=== PATIENT | male | born 1970 | race Caucasian/White ===

== ENCOUNTER 2017-08-02 12:47 | Emergency (ER) | payer BC ==
[~2017-08-02 12:47] MED LIST: ATROPINE SULFATE 0.1 MG/ML 10ML SYRINGE ONE; EPINEPHrine 10 ML SYRINGE (0.1 MG/ML) ONE; NALOXONE 0.4 MG/ML 1 ML VIAL ONE; NALOXONE 1 MG/ML 2 ML SYRINGE ONE; SODIUM BICARB 8.4% 50 ML SYR (1 MEQ/ML) ONE
[2017-08-02 13:14] LABS: Glucose,Whole Blood 130 mg/dL (75-99)
--- NOTE | 2017-08-02 13:33 | ED ---
CPR HPI - General Chief Complaint: Cardiac Arrest/CPR Stated Complaint: UNresponsive Time Seen by Provider: 08/02/17 12:47 Source: family, EMS, RN notes reviewed, old records reviewed Mode of arrival: EMS - History of Present Illness Initial Comments: This is a 46-year-old male with a history of GERD any history of DVT in the right leg in 2006 who apparently is been having intermittent episodes of dyspnea over the past month or so. Today he was found lying on the floor at his home in the bathroom and 3 taken a shower by his . She states he had fallen on his face. He was laying on the floor and asked to be taken to the hospital. He was short of breath. Upon arrival paramedics assessed the patient found to be dyspneic and very anxious. He ate. As if he was hyperventilating. He was brought here for evaluation. In route he went to her respiratory and apparent PEA arrest. ACLS protocol was started. Upon arrival the patient was unresponsive. CPR was in progress with [id number] used for respiratory support. - Related Data Home Medications Medication Instructions Recorded Confirmed Ranitidine HCl [Zantac] 150 mg PO BID 05/29/16 06/03/16 Allergies Allergy/AdvReac Type Severity Reaction Status Date / Time No Known Allergies Allergy Verified 05/29/16 15:50 Review of Systems ROS Statement: Those systems with pertinent positive or pertinent negative responses have been documented in the HPI. ROS Other: All systems not noted in ROS Statement are negative. Limitations: ROS unobtainable due to patients medical condition Past Medical History Past Medical History: Deep Vein Thrombosis (DVT), GERD/Reflux History of Any Multi-Drug Resistant Organisms: None Reported Past Surgical History: No Surgical Hx Reported Past Anesthesia/Blood Transfusion Reactions: No Reported Reaction Additional Past Anesthesia/Blood Transfusion Reaction / Comment(s): has never had anesthesia Smoking Status: Never smoker Past Alcohol Use History: Occasional Past Drug Use History: None Reported - Past Family History Mother Family Medical History: Cancer Additional Family Medical History / Comment(s): breast General Exam - General Exam Comments Initial Comments: This is a well-developed well-nourished unresponsive male Limitations: altered mental status, physical limitation General appearance: other (Unresponsive) Head exam: Present: other (Some blood emanating from the nares. No definite open wound seen. Oropharynx did have a slight amount of blood in it.) Eye exam: Present: other (Pupils are fixed and dilated about 5 mm.) ENT exam: Present: other (As above no Kiser sign) Neck exam: Present: normal inspection, other (No carotid pulses) Respiratory exam: Present: other (No spontaneous breathing lung sounds are equal with [id number]) Cardiovascular Exam: Present: other (Pulseless) GI/Abdominal exam: Present: soft Rectal exam: Present: deferred exam: Present: normal inspection Extremities exam: Present: normal inspection. Absent: normal capillary refill Back exam: Present: normal inspection Neurological exam: Present: other (Unresponsive) Psychiatric exam: Present: other (Unresponsive) Skin exam: Present: pallor Procedures - Intubation Time Out Performed: No (In constant attendance) Laryngoscope: Felder Size: 3 ET Tube Size: 8 ET Tube Uncuffed: No (CUFFED) Tube Secured Depth (cm): 23 Tube Secured Location: lips Tube Placement Confirmation: visualized tube passing through cords, equal breath sounds bilaterally, confirmation by capnometry Patient Tolerated Procedure: well, no complications (X-ray was performed prior to the intubation in the oral cavity is treated with Peridex) Intubation Complications: none Medical Decision Making - Medical Decision Making CPR and A cells protocol was continued from the time of arrival at 12:45 PM after the original call was made at 1217 to 911. ACLS protocol was followed with continues cardiopulmonary resuscitation. The patient did not however respond to the efforts. Patient remained in a PDA rest and ultimately became asystolic and was pronounced at 13:16 p.m. I did discuss the case with the patient's and son as well as family members. I did discuss case with Dr. Adame in 1358 who is agreed to sign certificate. I did discuss the case with the medical insurance claims specialist's office at 1450 5 PM. Per the timing the patient will be sent to the [facility] [place] for further evaluation by the medical insurance claims specialist. Clinically the presentation appears to be consistent with a pulmonary embolism - Lab Data Lab Results 08/02/17 Range/Units 12:55 POC Glucose (mg/dL) 130 H (75-99) mg/dL POC Glu Support Merchandiser ID Fabienne Christensen Critical Care Time Critical Care Time: Yes Critical Care Time: 45 minutes of critical care time which includes initial presentation with monitoring of the EMS run and discussed with paramedics history physical evaluation of old charting that was available. Discussion with the patient's discussion with the patient is primary care doctor. Discussed with the medical insurance claims specialist's office. Discussion with the medical and vascular. Documentation of the above. This did not include the intubation time. Disposition Clinical Impression: Sudden cardiac , PEA (Pulseless electrical activity) Disposition: Referrals: None,Stated [REFERRING] - 1-2 days Preliminary Cause of : Sudden cardiac
== END 2017-08-02 16:20 | disposition expired ==
LOC: EC 12:47
DX: I46.9 Cardiac arrest, cause unspecified (principal); Z86.718 Personal history of other venous thrombosis and embolism; K21.9 Gastro-esophageal reflux disease without esophagitis; Z79.899 Other long term (current) drug therapy
CPT/HCPCS: 36415; 99285; 92950; 31500; J2310 ×2; J0461; J0171